=== PATIENT | male | born 1995 | race Caucasian/White ===

== ENCOUNTER 2022-03-08 21:23 | Emergency (ER) | payer BC ==
[2022-03-08 23:28] VITALS: BP 122/74; PULSE 74
== END 2022-03-08 23:28 | disposition home or self-care (01) ==
LOC: MW.ED 21:23
DX: H61.22 Impacted cerumen, left ear (principal)
CPT/HCPCS: 69209; 99282; 99282-25

== ENCOUNTER 2025-01-16 17:04 | Emergency (ER) | payer BC ==
[2025-01-16] MEDS ORDERED: cefTRIAXone 1 GM in Lidocaine 1% 2.1 ML IM ONE (18:12)
[2025-01-16] MEDS ORDERED: Diphtheria,Pertussis(Acell),Tetanus Vaccine 0.5 ML Syringe IM ONE (18:12)
[2025-01-16 19:34] VITALS: BP 134/66; PULSE 78
== END 2025-01-16 18:51 | disposition home or self-care (01) ==
LOC: MW.ED 17:04
DX: S51.851A Open bite of right forearm, initial encounter (principal); Z23 Encounter for immunization; W54.0XXA Bitten by dog, initial encounter
CPT/HCPCS: 90471; 90715; 96372; 99283; J0696; J2003